=== PATIENT | female | born 1990 | race Caucasian/White ===

== ENCOUNTER → 2016-09-22 | Outpatient (CLI) | payer OTHER ==
[~2016-09-22] MED LIST: ACET-749 PO; CLR10 PO; PRENTAB26 PO; ZNTT/150 PO
[2016-09-22 11:10] LABS: HEMATOCRIT 32.4 % (37-47)
[2016-09-22 12:02] LABS: URINE APPEARANCE CLEAR (CLEAR); URINE BILIRUBIN NEG (NEG); URINE COLOR DK YELLOW; URINE EPITHELIAL CELL AUTO >30 /lpf (0-5); URINE NITRITE NEG (NEG); URINE SPECIFIC GRAVITY 1.008 (1.000-1.030); UROBILINOGEN NEG (NEG)
[2016-09-22 12:10] LABS: GTGD 50 Grams
[2016-09-22 12:21] LABS: MANUAL MICROSCOPIC REQUIRED? NO; REVIEW REQ? NO
== END | disposition home or self-care (01) ==
LOC: C.LAB1850 09:38
PROVIDERS: ATTEND Obstetrics & Gynecology
DX: Z34.03 Encounter for supervision of normal first pregnancy, third trimester (principal)

== ENCOUNTER → 2016-09-27 | Outpatient (CLI) | payer OTHER ==
[2016-09-27 13:30] LABS: URINE APPEARANCE CLEAR (CLEAR); URINE BILIRUBIN NEG (NEG); URINE COLOR YELLOW; URINE NITRITE NEG (NEG); URINE SPECIFIC GRAVITY 1.023 (1.000-1.030); UROBILINOGEN NEG (NEG)
[2016-09-27 13:51] LABS: MANUAL MICROSCOPIC REQUIRED? NO; REVIEW REQ? NO
== END | disposition home or self-care (01) ==
LOC: C.LAB1850 07:51
PROVIDERS: ATTEND Obstetrics & Gynecology
DX: O23.40 Unspecified infection of urinary tract in pregnancy, unspecified trimester (principal); O28.1 Abnormal biochemical finding on antenatal screening of mother; Z3A.00 Weeks of gestation of pregnancy not specified

== ENCOUNTER 2016-12-03 20:35 | Inpatient (IN) | payer OTHER ==
[~2016-12-03] VITALS: Ht 160 cm; Wt 80.5 kg
[2016-12-03] MEDS ORDERED: LACTATED RINGER'S 1000ML 1,000 ML IV PRN (20:43)
[2016-12-03] MEDS ORDERED: PENICILLIN G POTASSIUM IV 6 MU in DEXTROSE 5% 250ML 250 ML IV ONE (21:00)
[2016-12-03 21:17] LABS: HEMATOCRIT 31.8 % (37-47); MEAN CORPUSCULAR HEMOGLOBIN 26.8 pg (25-34); MEAN CORPUSCULAR HGB CONC 32.7 g/dl (32-36); MEAN PLATELET VOLUME 10.4 fL (7.4-10.4); PLATELET COUNT 219 K/uL (130-400); RED BLOOD COUNT 3.88 M/uL (4.2-5.4); WHITE BLOOD COUNT 11.32 K/uL (4.8-10.8)
[2016-12-03] MEDS: LACTATED RINGER'S 1000ML 1,000 ML IV SCH (21:17)
[2016-12-03 21:48] VITALS: Ht 160 cm; Wt 80.5 kg
[2016-12-03] MEDS ORDERED: PRENTAB26 PO (21:58)
[2016-12-03] MEDS ORDERED: CLR10 PO (21:59)
[2016-12-03] MEDS ORDERED: ZNTT/150 PO (21:59)
[2016-12-04] MEDS ORDERED: MISOPROSTOLTAB 50 MCG TAB PO ONE (00:15)
[2016-12-04] MEDS: PENICILLIN G POTASSIUM IV 3 MU in DEXTROSE 5% 100ML 100 ML IV PRN ×5 (01:14→17:35)
[2016-12-04] MEDS ORDERED: BUTORPHANOL TARTRATE 1 MG/ML VIAL IV PRN (03:15)
[2016-12-04] MEDS ORDERED: BUTORPHANOL TARTRATE 1 MG/ML VIAL ONE (03:16)
[2016-12-04] MEDS ORDERED: LACTATED RINGER'S 1000ML 500 ML IV PRN ×2 (06:13→08:22)
[2016-12-04] MEDS ORDERED: OXYTOCIN 30 UNITS/500ML NSS IV PRN ×2 (06:15→19:30)
[2016-12-04] MEDS ORDERED: EpHEDrine SULFATE INJ 50 MG/ML AMP ONE (07:49)
[2016-12-04] MEDS ORDERED: BUPIVACAINE 0.25% 30 ML VIAL ONE (07:49)
[2016-12-04] MEDS ORDERED: FENTANYL CITRATE INJ 50 MCG/1 ML 2 ML VIAL ONE (07:50)
[2016-12-04] MEDS ORDERED: FENTANYL 2MCG/ML ROPIV 1.25MG/ML 100ML BAG EPI ONE (07:50)
[2016-12-04] MEDS ORDERED: NALOXONE HCL INJ 1 MG in SODIUM CHLORIDE 0.9% 1000ML 1,000 ML IV PRN (08:22)
[2016-12-04] MEDS ORDERED: DiphenhydrAMINE HCL 50 MG/ML VIAL IV PRN (08:30)
[2016-12-04] MEDS ORDERED: NALOXONE HCL INJ 0.4 MG/1 ML VIAL/CARP IV PRN (08:30)
[2016-12-04] MEDS ORDERED: PROMETHAZINE HCL INJ 12.5 MG in SODIUM CHLORIDE 0.9% 50ML 50 ML IV PRN (08:30)
[2016-12-04] MEDS ORDERED: EpHEDrine SULFATE INJ 50 MG/ML AMP IV PRN (08:30)
[2016-12-04] MEDS ORDERED: FENTANYL 2MCG/ML ROPIV 1.25MG/ML 100ML BAG EPI PRN (08:30)
[2016-12-04] MEDS ORDERED: ONDANSETRON INJ 2 MG/ML 2 ML VIAL IV PRN (08:30)
[2016-12-04] MEDS ORDERED: NALBUPHINE HCL INJ 10 MG/ML AMP IV PRN (08:30)
[2016-12-04] MEDS: LACTATED RINGER'S 1000ML 1,000 ML IV SCH (12:20)
[2016-12-04] MEDS ORDERED: OXYTOCIN INJ 20 UNITS in LACTATED RINGER'S 1000ML 1,000 ML IV SCH (19:27)
[2016-12-04] MEDS ORDERED: HYDROCORTISONE ACETATE 25 MG SUPP PR PRN (19:30)
[2016-12-04] MEDS ORDERED: DIPHTHERIA/TETANUS/PERTUSSIS 0.5 ML SYR/VIAL IM. ONE (19:30)
[2016-12-04] MEDS ORDERED: ACETAMINOPHEN 325 MG TAB PO PRN (19:30)
[2016-12-04] MEDS ORDERED: ACETAMINOPHEN/CODEINE 300/30MG TAB PO PRN (19:30)
[2016-12-04] MEDS ORDERED: LANOLIN OINT EXT PRN ×2 (19:30)
[2016-12-04] MEDS ORDERED: SUPERCREAM 0.870 % 15GM JAR EXT PRN (19:30)
--- NOTE | 2016-12-04 19:47 | DELIVERY SUMMARY ---
DATE OF OPERATION: 12/04/2016 The patient pushed for greater than 4 hours and requested assistance due to maternal exhaustion. heart tones were category 1. The bladder was attempted to be drained but due to the position, was unable to be drained. The vaginal exam was complete dilation, complete effacement and +4 station. There was significant maternal labial swelling. The vacuum was applied and over 2 contractions and 2 pulls with no pop-offs, the cephalic was delivered. The nose and mouth were bulb suctioned. The shoulders and body were delivered with ease and the infant was vigorous and crying at . The cord was clamped and cut and the infant was placed on maternal abdomen. Cord blood was obtained. The placenta was delivered spontaneously and intact with 3-vessel cord. Hemostasis was achieved with dilute Pitocin and uterine massage. Cervix and sulci were intact. The laceration was notably 4th degree. Rectal exam was performed and the rectal mucosa was notably splayed. The mucosal tissue was reapproximated using 4-0 Vicryl in a continuous fashion in the usual fashion. Next, the anal sphincter edges were grasped and the fascia was reapproximated in a circumferential fashion in 4 interrupted sutures of 2-0 Vicryl. The vaginal laceration was begun using 3-0 Vicryl and carried down to the perineum and the perineum was reapproximated in the usual fashion using 3-0 Vicryl. During the process of the repair, additional injections of 1% local lidocaine for anesthesia were given. The EBL was 300 mL. Mother and baby were stable in recovery. I attest to the content of the Intraoperative Record and any orders documented therein. Any exceptions are noted below. RACHEAL
[2016-12-04] MEDS: IBUPROFEN 600 MG TAB PO PRN (20:04)
[2016-12-04] MEDS: BENZOCAINE 20% AER SPR 82.5 GM CAN EXT PRN (20:04)
--- NOTE | 2016-12-04 20:31 | Anesthesia Procedure Note ---
Anesthesia Epidural Removal Nt Date & Time Dec 04, 2016 at 20:31 Vital Signs Pain Intensity: 6.0 Notes Mental Status: alert / awake / arousable, participated in evaluation Nausea / Vomiting: adequately controlled Pain: adequately controlled Airway Patency, RR, SpO2: stable & adequate BP & HR: stable & adequate Hydration State: stable & adequate Neuraxial Anesthesia: was administered Anesthetic Complications: no major complications apparent, pt satisfied with anesthetic care Epidural: removed without complications, with tip intact
[2016-12-04] MEDS: DOCUSATE SODIUM 100 MG CAP PO SCH (20:50)
[2016-12-04 23:10] VITALS: BP 142/82; PULSE 106; TEMP 37.2; O2SAT 99
[2016-12-05] MEDS: IBUPROFEN 600 MG TAB PO PRN ×5 (01:00→21:52)
[2016-12-05 04:15] VITALS: BP 127/77; PULSE 80; TEMP 36.9; O2SAT 99
[2016-12-05] MEDS: ACETAMINOPHEN/CODEINE 300/30MG TAB PO PRN ×5 (04:25→21:53)
[2016-12-05 07:30] VITALS: BP 133/69; PULSE 85; TEMP 36.7
--- NOTE | 2016-12-05 07:49 | Progress Note ---
Subjective Dec 05, 2016. Subjective conversation w/ patient, physical exam Ambulation: ambulating normally Voiding: no voiding problems Diet Tolerance: Regular Diet Lochia: Small Feeding Type: Breast Feeding Pain: sore bottom Objective Vital Signs Date Time Temp Pulse Resp B/P Pulse Ox O2 Delivery O2 Flow Rate FiO2 12/05/16 04:15 36.9 80 18 127/77 99 Room Air 12/04/16 23:10 37.2 106 18 142/82 99 Room Air 12/04/16 23:10 99 Room Air Physical Exam General Appearance: WELL-APPEARING, WD/WN, NO APPARENT DISTRESS Respiratory/Chest: lungs clear Cardiovascular: regular rate, rhythm Abdomen: non tender, soft Fundus: Firm, Relation to Umbilicus (2 down) Extremities: non-tender Assessment and Plan Post- Day#: 1 Continue Routine Care: stable, discussed 4th degree laceration. routine care. breast.
[2016-12-05] MEDS: DOCUSATE SODIUM 100 MG CAP PO SCH ×2 (08:14→19:48)
[2016-12-05 11:40] VITALS: BP 128/82; PULSE 94; TEMP 37
[2016-12-05 15:40] VITALS: BP 130/85; PULSE 94; TEMP 36.9; O2SAT 100
[2016-12-05 23:30] VITALS: BP 132/88; PULSE 109; TEMP 36.9; O2SAT 99
[2016-12-06] MEDS: ACETAMINOPHEN/CODEINE 300/30MG TAB PO PRN ×3 (03:36→14:48)
[2016-12-06] MEDS: IBUPROFEN 600 MG TAB PO PRN ×3 (03:36→14:47)
[2016-12-06 07:30] VITALS: BP 125/80; PULSE 94; TEMP 36.8
--- NOTE | 2016-12-06 07:42 | Progress Note ---
Subjective Dec 06, 2016. Subjective conversation w/ patient, physical exam Ambulation: ambulating normally Voiding: no voiding problems Diet Tolerance: Regular Diet Lochia: Small Feeding Type: Breast Feeding Pain: bottom sore but better. Objective Vital Signs Date Time Temp Pulse Resp B/P Pulse Ox O2 Delivery O2 Flow Rate FiO2 12/05/16 23:30 Room Air 12/05/16 23:30 36.9 109 18 132/88 99 Room Air 12/05/16 15:40 36.9 94 18 130/85 100 Room Air 12/05/16 15:40 100 Room Air 12/05/16 11:40 37.0 94 18 128/82 Room Air 12/05/16 08:15 Room Air Physical Exam General Appearance: WELL-APPEARING, WD/WN, NO APPARENT DISTRESS Respiratory/Chest: lungs clear Cardiovascular: regular rate, rhythm Abdomen: non tender, soft Fundus: Firm, Relation to Umbilicus (2 down) Extremities: non-tender Assessment and Plan Post- Day#: 2 Continue Routine Care: stable, routine care. d/c home, f/u 6wks pp check. instructions reviewed.
--- NOTE | 2016-12-06 07:43 | Discharge Instructions ---
Discharge Instructions Date of Service Dec 06, 2016. Admission Reason for Admission: Check Rupture Discharge Discharge Diagnosis / Problem: s/p delivery Discharge Goals Goal(s): Routine recovery after delivery Medications Continue Dispensed Medications: supercream, dermaplast, tucks, lansinoh Activity Recommendations Activity Limitations: as noted below . Instructions / Follow-Up Instructions / Follow-Up ACTIVITY RECOMMENDATIONS: * Gradual return to full activity over the next 2-3 weeks. * No lifting - nothing heavier than baby over the next 2-3 weeks. * Do not engage in vigorous exercise, sexual activity or sports until cleared by your physician. * Do not drive or operate any motorized equipment until cleared by your physician. * You may shower/bathe daily. MEDICATIONS: For discomfort or pain, you may use Acetaminophen (Tylenol), Ibuprofen (Advil), or Naproxen (Aleve) following the package directions. For constipation you may use Colace following the package directions. BREAST CARE: If you are not breast feeding: * Wear a supportive bra 24 hours a day for one to two weeks. * Avoid stimulating your breasts and nipples as much as possible during the first few weeks after delivery. * When taking a shower, have the warm water hit your back, not breasts. * When your breasts feel full, apply ice packs. Usually three to four times a day helps ease the discomfort. * Take a mild pain medication (Tylenol / Motrin) when you are uncomfortable. If breast feeding: * Use breast milk to lubricate nipples. Lansinoh cream may be used for sore nipples. You do not need to remove cream prior to breast feeding. If using a different brand of cream, check the label for directions regarding removal of cream prior to nursing. * Wear a supportive bra. * If having problems with breasts or breast feeding, call a economic consultant or your health care provider. EPISIOTOMY CARE: After delivery, if you have an episiotomy (stitches), the following steps will ease discomfort and aid healing. * For the first 24 hours after delivery, place ice packs next to your episiotomy to help reduce swelling. * After the first 24 hour-period, sitz baths, either portable or in the tub, are suggested. A shower with a shower arm sprayed over the episiotomy may be comforting. * Jeannette care should be done after each voiding and bowel movement. Squirt warm water from a plastic bottle over the perineum (region of the body between the anus and urinary opening) and pat dry. * Use Dermoplast to ease discomfort. Shake container. [place] directly over the episiotomy. Place a Tucks on a clean sanitary pad next to your episiotomy. SPECIAL CARE INSTRUCTIONS: When you are discharged from the hospital, it is important for you to follow the instructions listed below: * During the first week at home, you should be able to care for yourself and your baby. In addition, the usual light household activities are encouraged. * Limit your activities to the way you feel. Do not try to clean the house or move furniture. Be sensible. * If you actively engage in sports and have done so up until the time of your delivery, you may resume these activities as soon as you feel able. This may take up to one month or even longer. Use good judgment. * Continue to take your vitamins for at least six weeks after the of your baby. * Your diet need not be limited unless you were on a special diet before your delivery. Breast-feeding mothers need around 2500 calories per day and at least 64-80 ounces of fluid per day (8 to 10 glasses). * You should eat foods from the four major food groups. Crash diets or fad diets are to be avoided. Eating lean meats, fresh fruits and vegetables, low-fat dairy products, high fiber foods and a regular exercise program, will help you get back to your pre- weight without putting your health at risk. * Constipation is sometimes a problem after delivery. Take a mild laxative as needed. If breast feeding, Milk of Magnesia is acceptable to use. You may use a suppository or Fleets enema if no episiotomy. * A daily shower or tub bath is suggested. Be sure to thoroughly and gently dry the perineum. * A bloody vaginal discharge will usually continue until around four weeks post . A small amount of bleeding may continue for as long as six weeks. Vaginal discharge changes from the bright red bleeding after delivery to pink then brownish and finally yellowish-pink before becoming white and disappearing. * Bleeding may increase with activity. Your first period may come in 4-8 weeks. If you are breast feeding, your period may be delayed even longer. * [place] (sex) can begin whenever both you and your partner feel comfortable and do not have any form of genital infection. It is recommended that you wait at least six weeks for internal and external healing to occur. If you have questions, please talk to your health care practitioner. A condom should be used to prevent infection and . * Foreplay, gentle intercourse and lubrication is very important the first several times to prevent pain. A water-based lubricant such as K-Y jelly or Astroglide may be used. * If you have RH negative blood and your baby is RH positive, you will receive RHOGAM by injection prior to discharge. The nurse will give you a card to keep with you that has the date and place that you received RHOGAM after delivery. * During your care, you had a Rubella screen done to check for the presence of rubella antibodies in your blood. If your test was negative, you will receive a Rubella vaccine prior to discharge. This vaccine may cause a fever, soreness at the injection site and flu-like symptoms. If these symptoms persist, notify your health care practitioner. is not advised for one month after a Rubella vaccine. * Verbalizes understanding of car seat law as reviewed with patient nursing. * Car Seat hand-out given and reviewed with patient by nursing. * Shaken baby information reviewed with patient by nursing. Call you doctor if: * Heavy bleeding (saturating several pads an hour) or passing clots the size of your fist. * A fever >101 degrees F (38.3 degrees C) on two occasions four hours apart and /or chills. * Unusual pain in the pelvic or vaginal areas. * "Baby Blues" lasting longer than two weeks. If you have any questions or concerns, call your health care practitioner at . FOLLOW UP VISIT: * Please call the office at to schedule a 6 week examination. It is important you keep this appointment. It is important for you to make arrangements for either yearly or twice yearly check-ups thereafter. Current Hospital Diet Patient's current hospital diet: Regular OB Diet Discharge Diet Recommended Diet: Regular Diet Pending Studies Studies pending at discharge: no Medical Emergencies . Who to Call and When: Medical Emergencies: If at any time you feel your situation is an emergency, please call 911 immediately. . Non-Emergent Contact Non-Emergency issues call your: Sales Attendant . . "Provider Documentation" section prepared by Liberty Whitfield. VTE Core Measure Inpt VTE Proph given/why not?: Treatment not indicated
[2016-12-06] MEDS: DOCUSATE SODIUM 100 MG CAP PO SCH (10:12)
[2016-12-06] MEDS ORDERED: ACET-749 PO (11:13)
[2016-12-06] MEDS: BENZOCAINE 20% AER SPR 82.5 GM CAN EXT PRN (13:29)
[2016-12-06 15:00] VITALS: BP_DIAS 80; PULSE 94; TEMP 36.8
--- NOTE | 2016-12-15 16:36 | DISCHARGE SUMMARY ---
ADMISSION DIAGNOSES: 1. A 38-week intrauterine . 2. Premature rupture of membranes. 3. Induction of labor. DISCHARGE DIAGNOSES: 1. Same 2. Vacuum assisted vaginal delivery. 3. Fourth degree perineal laceration. BRIEF HISTORY AND HOSPITAL COURSE: This 26-year-old 1, para 0 at 38 weeks estimated gestational age who presented with premature rupture of membranes with no labor. She was given Cytotec followed by Pitocin induction of labor. She dilated to complete and began to push on and off in the second stage, however, became exhausted. She requested vacuum assistance. A vacuum assisted vaginal delivery took place over 2 contractions with 2 pulls and no pop offs. The patient had significant maternal labial swelling due to her pushing stage for greater than [address] and was uncomplicated except for a notable fourth degree perineal laceration. The repair took place in the usual fashion with 4-0, 3-0 and 2-0 Vicryl. Additional injections of 1% local lidocaine was used for anesthesia during the repair. Estimated blood loss was 300 mL. The patient's postop recovery was uncomplicated. She was tolerating a regular diet, voiding spontaneously without difficulty and ambulating without difficulty and was stable for discharge to home on her day #2. She was given routine discharge instructions that outlined limitations in her activity and instructed her to follow up in 6 weeks time for a checkup. She is also instructed to use a stool softener to keep her bowels soft and regular for the next 6 weeks. She was to continue to take the vitamin as well. RACHEAL
== END 2016-12-06 15:00 | disposition home or self-care (01) | DRG 775 ==
LOC: C.LD 20:35 → C.OPB 20:35 → C.LD 20:44 → C.OBG 12-04 22:39
PROVIDERS: ADMIT Obstetrics & Gynecology; ATTEND Obstetrics & Gynecology
PROC: 3E033VJ Introduction of Other Hormone into Peripheral Vein, Percutaneous Approach (ICD-10-PCS; 2016-12-03)
PROC: 0DQP0ZZ Repair Rectum, Open Approach (ICD-10-PCS; principal; 2016-12-04)
PROC: 10D07Z6 Extraction of Products of Conception, Vacuum, Via Natural or Artificial Opening (ICD-10-PCS; principal; 2016-12-04)
DX: O75.81 Maternal exhaustion complicating labor and delivery (principal); O42.92 Full-term premature rupture of membranes, unspecified as to length of time between rupture and onset of labor; O70.3 Fourth degree perineal laceration during delivery; O99.824 Streptococcus B carrier state complicating childbirth; Z37.0 Single live birth; Z3A.38 38 weeks gestation of pregnancy

== ENCOUNTER 2021-11-25 18:19 | Inpatient (IN) ==
[2021-11-25] MEDS ORDERED: OXYTOCIN 30 UNITS/500 ML BAG IV PRN ×2 (18:21→23:30)
[2021-11-25] MEDS: LACTATED RINGER'S 1,000 ML IV PRN ×2 (18:40→20:49)
[2021-11-25 18:57] LABS: Hematocrit (blood only) 32.7 % (37-47); Hemoglobin 10.6 g/dL (12.0-16.0); Mean Corpuscular Hemoglobin 27.9 pg (25-34); Mean Corpuscular Hgb Conc 32.4 g/dL (32-36); Mean Corpuscular Volume 86.1 fL (80-100); Mean Platelet Volume 10.2 fL (7.4-10.4); Platelet Count 245 K/uL (130-400); RDW Coefficient of Variation 14.2 % (11.5-14.5); RDW Standard Deviation 44.3 fL (36.4-46.3); White Blood Count 9.45 K/uL (4.8-10.8)
--- NOTE | 2021-11-25 19:23 | Anesthesiology Consultation ---
Date of Service November 25, 2021 Assessment & Plan (1) Encounter for pre-operative examination: Chart Review Chart Review: Acceptable Risk for Surgery and Patient NOT seen in Pre Admission Testing Consults Requested none History Height/Weight Height: 5 ft 3 in Weight: 79.379 kg Allergies Allergy/AdvReac Type Severity Reaction Status Date / Time No Known Allergies Allergy Verified 11/25/21 11:28 Medications Home Medications Medication Instructions Recorded Confirmed Last Taken prenat.vits,glen,izs-zgpp-qoois 1 tab PO DAILY 04/09/19 11/25/21 11/24/21 L.acidophilus,rhamnosus-B.breve-S.thermophilus 2 tab PO QAM 09/19/21 11/25/21 11/25/21 3 billion cell chew tab vitamin B complex 1 tab PO QAM 09/19/21 11/25/21 11/24/21 lansoprazole 30 mg capsule,delayed 30 mg PO DAILY #30 cap 10/20/21 11/25/21 11/25/21 release (Prevacid) Active Medications Generic Name Dose Route Start Last Admin Trade Name Freq PRN Reason Stop Dose Admin Lactated Ringer's 1,000 mls @ 125 mls/hr 11/25/21 18:21 11/25/21 18:40 Lr IV 11/27/21 18:20 999 mls/hr .Q8H PRN Administration L&D Protocol Protocol Past Medical History Medical History H/O varicella History of congenital diaphragmatic hernia second infant Nephrolithiasis No chronic problems Past Family History Family History Brother Family history of diabetes mellitus Mother Hypercholesteremia Hypertension Family history of kidney stones Thyroid disease Father Hypercholesteremia Hypertension Denies family history of Ovarian cancer Breast cancer Colorectal cancer Past Surgical History Surgical History H/O wisdom tooth extraction History of tonsillectomy S/P bunionectomy LEFT Status post colposcopy Social History Smoking Status: Never smoker Hx Alcohol Use: No Hx Substance Use: No substance use type: does not use Physical Exam Vital Signs Last Vital Signs Temp 36.9 C 11/25/21 18:28 Pulse 96 H 11/25/21 19:18 Resp 18 11/25/21 18:28 BP 143/78 H 11/25/21 19:10 Pulse Ox 100 11/25/21 19:18 Testing Laboratory Results 11/25/21 18:21
[2021-11-25] MEDS ORDERED: fentaNYL citrate 100 MCG/2 ML VIAL ONE (19:58)
[2021-11-25] MEDS ORDERED: ePHEDrine sulfate 50 MG/ML AMP ONE (19:58)
[2021-11-25] MEDS ORDERED: SODIUM CHLORIDE 0.9% INJ 10 ML VIAL ONE (19:59)
[2021-11-25] MEDS ORDERED: fentaNYL 2MCG/ML ROPIVACAINE 1.25MG/ML 100 ML BAG EPI ONE (19:59)
[2021-11-25] MEDS ORDERED: BUPIVACAINE 0.25% 30 ML VIAL ONE (19:59)
[2021-11-25] MEDS ORDERED: ePHEDrine sulfate 50 MG/ML AMP IV PRN (20:32)
[2021-11-25] MEDS ORDERED: fentaNYL 2MCG/ML ROPIVACAINE 1.25MG/ML 100 ML BAG EPI PRN (20:32)
[2021-11-25] MEDS ORDERED: NALOXONE HCL 0.4 MG/1 ML VIAL/CARP IV PRN (20:32)
[2021-11-25] MEDS ORDERED: diphenhydrAMINE 50 MG/ML VIAL IV PRN (20:32)
[2021-11-25] MEDS ORDERED: ONDANSETRON INJ 2 MG/ML 2 ML VIAL IV PRN (20:32)
[2021-11-25] MEDS ORDERED: NALBUPHINE HCL INJ 10 MG/ML AMP IV PRN (20:32)
[2021-11-25] MEDS ORDERED: NALOXONE HCL 1 MG in SODIUM CHLORIDE 0.9% 1000ML 1,000 ML IV PRN (20:32)
[2021-11-25] MEDS ORDERED: NURSING L&D Epidural Breakthrough Pain Update ONE (21:18)
--- NOTE | 2021-11-25 22:07 | Delivery Summary ---
Vaginal Delivery Summary Date of Service November 25, 2021 Vaginal Delivery Summary Patient arrived in spontaneous labor Covid negative group B strep negative she requested epidural at 6 cm after this membranes were ruptured for clear fluid she then soon after progressed to fully dilated and started pushing she was able to push reasonably well however she was having prolonged bradycardia at this stage after recovery at about 100 bpm it then once again descended into the 80s I offered and recommended vacuum the patient had a recent drainage of her bladder within half an hour the vacuum was applied at +2 station we pulled for a total of 1 contraction there were no pop offs easy delivery of the head mouth and then nares were suctioned fluid was clear no nuchal cord gentle traction the baby no excessive force live vigorous male cord clamped and cut cord gases obtained cord blood obtained placenta removed with gentle traction second- degree tear repaired with 3-0 Vicryl sponge and instrument counts correct estimated blood loss 300 mL
[2021-11-25 22:15] LABS: Base Excess Cord Arterial Bld -4.7 mEq/L (-9-1.8); CO2 Cord Arterial Blood 37 mmHg (39.1-73.5); HCO3 Cord Arterial Blood 20 mmol/L (19.7-28.5); PO2 Cord Arterial Blood 40 mmHg (4.1-31.7); pH Cord Arterial Blood 7.35 (7.1-7.38)
[2021-11-25 22:18] LABS: Base Excess Cord Venous Blood -4.9 mEq/L (-7.7-1.9); Cord Venous Blood HCO3 19 mmol/L (18.4-26.8); Cord Venous Blood PCO2 34 mmHg (30.4-57.2); Cord Venous Blood PO2 45 mmHg (14.1-43.3); Cord Venous Blood pH 7.37 (7.20-7.44); O2 Saturation Cord Venous Bld 84.9 % (<68)
--- NOTE | 2021-11-25 22:53 | Anesthesia Procedure Note ---
Date of Service November 25, 2021 Anesthesia Post Epidural Note Vital Signs Vital Signs: Temp Pulse Resp BP Pulse Ox 36.7 C 75 18 134/63 98 11/25/21 21:55 11/25/21 22:41 11/25/21 22:41 11/25/21 22:41 11/25/21 21:58 Notes Mental Status: alert / awake / arousable and participated in evaluation Nausea / Vomiting: adequately controlled Pain: adequately controlled Airway Patency, RR, SpO2: stable & adequate BP & HR: stable & adequate Hydration State: stable & adequate Neuraxial Anesthesia: was administered and sensory block is resolving Anesthetic Complications: no major complications apparent and Pt Satisfied with anesthetic care Epidural: Removed without complications and With tip intact
[2021-11-25] MEDS ORDERED: HYDROCORTISONE ACETATE 25 MG SUPP PR PRN (23:30)
[2021-11-25] MEDS ORDERED: BENZOCAINE 20% AER SPR 82.5 GM CAN EXT PRN (23:30)
[2021-11-25] MEDS ORDERED: ACETAMINOPHEN 325 MG TAB PO PRN (23:30)
[2021-11-25] MEDS ORDERED: DIPHTHERIA/TETANUS/PERTUSSIS 0.5 ML SYR/VIAL IM ONE (23:30)
[2021-11-25] MEDS ORDERED: oxyCODONE/ACETAMINOPHEN 5mg/325mg TAB PO PRN (23:30)
[2021-11-25] MEDS ORDERED: IBUPROFEN 600 MG TAB PO ONE (23:35)
[2021-11-26] MEDS: IBUPROFEN 600 MG TAB PO PRN ×5 (03:50→21:39)
[2021-11-26 06:25] LABS: Hematocrit (blood only) 29.2 % (37-47); Hemoglobin 9.3 g/dL (12.0-16.0); Mean Corpuscular Hemoglobin 27.5 pg (25-34); Mean Corpuscular Hgb Conc 31.8 g/dL (32-36); Mean Corpuscular Volume 86.4 fL (80-100); Mean Platelet Volume 10.1 fL (7.4-10.4); Platelet Count 211 K/uL (130-400); RDW Coefficient of Variation 14.1 % (11.5-14.5); RDW Standard Deviation 44.5 fL (36.4-46.3); Red Blood Count 3.38 M/uL (4.2-5.4); White Blood Count 13.06 K/uL (4.8-10.8)
[2021-11-26] MEDS ORDERED: LANSOPRAZOLE 30 MG SOLTAB PO SCH ×2 (09:00→17:00)
[2021-11-26] MEDS ORDERED: NON-FORMULARY MEDICATION (Prenat.Vits,Cal,Min-Iron-Folic tablet) PO SCH (09:00)
[2021-11-26] MEDS: PRENATAL VITAMIN 1 TAB PO SCH (09:09)
[2021-11-26] MEDS: DOCUSATE SODIUM 100 MG CAP PO SCH ×2 (09:10→20:28)
[2021-11-26] MEDS: VITAMIN B COMPLEX TAB PO SCH (09:10)
[2021-11-26] MEDS ORDERED: Nursing to Pharmacy Communication SCH (09:15)
--- NOTE | 2021-11-26 09:28 | Obstetrical Progress Note ---
Date of Service <Hannah Badillo MD - Last Filed: 11/26/21 09:28> November 26, 2021 Assessment & Plan <Hannah Badillo MD - Last Filed: 11/26/21 09:28> (1) Encounter for care and examination after delivery: PPD 1: stable, routine management * RI, Rh+, GBS-, diphtheria+: Tdap vaccine administered postpartumconsider resolved * patient voiding and ambulating without difficulty * pain well controlled on analgesia * tolerating regular diet * * reassess d/c readiness tomorrow <Sarah Doll MD, FACOG - Last Filed: 11/27/21 08:08> (1) Encounter for care and examination after delivery: Subjective <Hannah Badillo MD - Last Filed: 11/26/21 09:28> Khushboo is a 31-year-old who is now PPD 1 following spontaneous vaginal delivery 39.3 weeks. Reports feeling well overall this morning. Some cramping pain well managed on analgesics. Voiding well. Tolerating meals well and able to ambulate without assistance. Lochia is unchanged this morning. . Review of Systems Denies fever, chills, sweats Denies shortness of breath, difficulty breathing, chest pain, palpitations, chest pressure. Denies breast pain. Denies dysuria. Denies headache or changes in vision Physical Exam <Hannah Badillo MD - Last Filed: 11/26/21 09:28> General: Alert, oriented. No acute distress. Cardiac: Regular rate and rhythm, no murmurs/rubs/gallops. Respiratory: Clear to auscultation bilaterally a/p, no wheezes/rales/rhonchi. No increased work of breathing. Symmetrical chest rise. No respiratory distress. Abdomen: Soft, nontender, nondistended. Bowel sounds present. Uterus: Uterine fundus firm, palpable 1 cm below umbilicus. Lower Extremities: No lower extremity edema or swelling. No deep calf pain. Ti's negative bilaterally.. Results & Data ([facility]) <Hannah Badillo MD - Last Filed: 11/26/21 09:28> Vital Signs (Past 12 Hours) Vital Signs Temp Pulse Pulse Resp BP BP Pulse Ox 11/26/21 07:35 36.8 C 78 16 125/85 98 11/26/21 03:30 36.9 C 80 18 128/70 98 11/26/21 00:50 36.9 C 82 18 117/74 98 11/25/21 23:55 89 18 145/79 H 11/25/21 23:40 88 137/71 11/25/21 23:25 78 18 139/71 11/25/21 23:10 72 133/69 11/25/21 22:56 80 18 144/72 H 11/25/21 22:41 75 18 134/63 11/25/21 22:35 87 148/66 H 11/25/21 22:25 18 11/25/21 22:10 18 134/85 11/25/21 21:58 96 H 98 11/25/21 21:55 36.7 C 85 18 131/75 11/25/21 21:53 84 98 11/25/21 21:48 84 98 11/25/21 21:43 93 H 98 11/25/21 21:42 100 H 129/76 11/25/21 21:38 87 99 11/25/21 21:37 86 90 11/25/21 21:33 81 100 11/25/21 21:30 92 H 70 L 11/25/21 21:28 85 100 11/25/21 21:25 100 H 146/80 H 11/25/21 21:23 98 H 100 <Sarah Doll MD, FACOG - Last Filed: 11/27/21 08:08> Co-Signing Physician Notes Resident Physician Supervision Note: I interviewed and examined the patient. Discussed with [Name of resident] and agree with findings and plan as documented in the note. Any exceptions or clarifications are listed here: [None] Documented By: Sarah Doll MD, FACOG Resident Activity Tracking <Hannah Badillo MD - Last Filed: 11/26/21 09:28> Resident Involvement: Resident Care Provided Care Provided: OB Delivery
[2021-11-26] MEDS ORDERED: bisacodyL 5 MG TABEC PO SCH (20:00)
[2021-11-27] MEDS ORDERED: bisacodyL 10 MG SUPP PR PRN
[2021-11-27] MEDS: IBUPROFEN 600 MG TAB PO PRN ×2 (03:35→07:53)
[2021-11-27 07:38] LABS: Hematocrit (blood only) 28.2 % (37-47); Hemoglobin 9.1 g/dL (12.0-16.0)
--- NOTE | 2021-11-27 07:43 | Obstetrical Progress Note ---
Date of Service <Hannah Badillo MD - Last Filed: 11/27/21 07:43> November 27, 2021 Assessment & Plan <Hannah Badillo MD - Last Filed: 11/27/21 07:43> (1) Encounter for care and examination after delivery: PPD 1: stable, routine management * RI, Rh+, GBS- * patient voiding and ambulating without difficulty * pain well controlled on analgesia * tolerating regular diet * * Discharge today * 6-week outpatient OB follow-up <Sreekanth Gomez MD - Last Filed: 11/27/21 07:55> (1) Encounter for care and examination after delivery: Subjective <Hannah Badillo MD - Last Filed: 11/27/21 07:43> Marce is a 31 y/o female who is now PPD 2 following spontaneous vaginal delivery at 39.5 weeks. Reports feeling well overall this morning. Mild cramping pain well managed on analgesics. Voiding well. Tolerating meals well and able to ambulate on her own. + Passing gas. Bleeding is improved this mor christiana. . Review of Systems Denies fever, chills, sweats Denies shortness of breath, difficulty breathing, chest pain, palpitations, chest pressure. Denies breast pain. Denies dysuria. Denies headache or changes in vision Physical Exam <Hannah Badillo MD - Last Filed: 11/27/21 07:43> General: Alert, oriented. No acute distress. Cardiac: Regular rate and rhythm, no murmurs/rubs/gallops. Respiratory: Clear to auscultation bilaterally a/p, no wheezes/rales/rhonchi. No increased work of breathing. Symmetrical chest rise. No respiratory distress. Abdomen: Soft, nontender, nondistended. Bowel sounds present. Uterus: Uterine fundus firm, palpable 1 cm above umbilicus. Lower Extremities: No lower extremity edema or swelling. No deep calf pain. Ti's negative bilaterally.. Results & Data ([facility]) <Hannah Badillo MD - Last Filed: 11/27/21 07:43> Vital Signs (Past 12 Hours) Vital Signs Temp Pulse Resp BP Pulse Ox 11/27/21 00:20 36.9 C 73 18 120/73 11/26/21 19:45 36.9 C 83 20 124/78 97 <Sreekanth Gomez MD - Last Filed: 11/27/21 07:55> Co-Signing Physician Notes Patient seen and evaluated and agree with the above findings and plan. Stable for discharge Resident Activity Tracking <Hannah Badillo MD - Last Filed: 11/27/21 07:43> Resident Involvement: Resident Care Provided Care Provided: OB Delivery
[2021-11-27] MEDS: DOCUSATE SODIUM 100 MG CAP PO SCH (07:52)
[2021-11-27] MEDS: PRENATAL VITAMIN 1 TAB PO SCH (07:54)
[2021-11-27] MEDS: VITAMIN B COMPLEX TAB PO SCH (08:46)
== END 2021-11-27 11:10 | disposition home or self-care (01) | DRG 807 ==
LOC: OPB 18:19 → 4S1 18:20 → 4E2 11-26 00:34
DX: Z79.899 Other long term (current) drug therapy; Z20.822 Contact with and (suspected) exposure to COVID-19; O26.893 Other specified pregnancy related conditions, third trimester; Z37.0 Single live birth; O70.1 Second degree perineal laceration during delivery; Z3A.39 39 weeks gestation of pregnancy; R00.1 Bradycardia, unspecified